=== PATIENT | female | born 1990 | race Caucasian/White ===

== ENCOUNTER 2018-04-25 11:04 | Emergency (ER) | payer OTHER ==
[2018-04-25] MEDS ORDERED: NORMAL SALINE 1000 ML 1,000 ML IV ONE (11:58)
[2018-04-25] MEDS ORDERED: METOCLOPRAMIDE HCL INJ/PF 10 MG/2 ML SDV IV ONE (11:58)
[2018-04-25] MEDS ORDERED: ACETAMINOPHEN 325 MG TABLET PO ONE (11:58)
[2018-04-25 13:08] LABS: APPEARANCE,URINE CLEAR; BILIRUBIN,URINE NEGATIVE (NEGATIVE); COLOR,URINE YELLOW; GLUCOSE, URINE NEGATIVE (NEGATIVE); KETONES,URINE TRACE mg/dL (NEGATIVE); LEUKOCYTE ESTERASE,URINE NEGATIVE (NEGATIVE); NITRITE,URINE NEGATIVE (NEGATIVE); PROTEIN,URINE NEGATIVE (NEGATIVE); URINE SPECIFIC GRAVITY 1.023; UROBILINOGEN,URINE NEGATIVE mg/dL (<2.0)
[2018-04-25 13:12] LABS: ALANINE AMINOTRANSFERASE 21 U/L (9-52); ALBUMIN 3.9 g/dL (3.5-5.0); ALKALINE PHOSPHATASE 54 U/L (38-126); ANION GAP 11 (5-19); ASPARTATE AMINO TRANSFERASE 26 U/L (14-36); BILIRUBIN,DIRECT 0.2 mg/dL (0.0-0.4); BILIRUBIN,TOTAL 0.7 mg/dL (0.2-1.3); BLOOD UREA NITROGEN 9 mg/dL (7-20); CALCIUM 9.5 mg/dL (8.4-10.2); CARBON DIOXIDE 24 mmol/L (22-30); CHLORIDE 104 mmol/L (98-107); GLUCOSE 80 mg/dL (75-110); POTASSIUM 4.1 mmol/L (3.6-5.0); SODIUM 139.2 mmol/L (137-145); TOTAL PROTEIN 7.3 g/dL (6.3-8.2)
--- NOTE | 2018-04-25 13:20 | ER Document Report ---
ED General - General Chief Complaint: Headache Stated Complaint: VOMITING/HEADACHE Time Seen by Provider: 04/25/18 11:51 TRAVEL OUTSIDE OF THE [place] IN LAST 30 DAYS: No - HPI Patient complains to provider of: Headache vomiting Notes: Patient coming infarct in 21 weeks complaining of significant headaches and vomiting. Patient states initially with this she was having vomiting however that resided patient states she currently is on metronidazole for a "yeast infection". Patient states she is almost completed only has 5 pills left however has a metal taste in her mouth and also significant headache patient states significant amount of vomiting over the last few hours as well. Patient otherwise states that she is feeling the baby kick. Patient is a complications during her first . Patient resting comfortably upon my evaluation states took Tylenol last night however stopped taking Tylenol earlier this morning. - Related Data Allergies/Adverse Reactions: No Known Allergies Allergy (Verified 04/25/18 11:05) Past Medical History - Social History Smoking Status: Unknown if Ever Smoked Chew tobacco use (# tins/day): No Frequency of alcohol use: None Drug Abuse: None Family History: Reviewed & Not Pertinent Patient has suicidal ideation: No Patient has homicidal ideation: No Renal/ Medical History: Denies: Hx Peritoneal Dialysis Review of Systems - Review of Systems Constitutional: Other - Headache vomiting EENT: No symptoms reported Cardiovascular: No symptoms reported Respiratory: No symptoms reported Gastrointestinal: No symptoms reported Genitourinary: No symptoms reported Female Genitourinary: No symptoms reported Musculoskeletal: No symptoms reported Skin: No symptoms reported Hematologic/Lymphatic: No symptoms reported Neurological/Psychological: No symptoms reported -: Yes All other systems reviewed and negative Physical Exam - Vital signs Vitals: Temp Pulse Resp BP Pulse Ox 99.6 F 79 16 117/59 L 99 04/25/18 11:22 04/25/18 11:22 04/25/18 11:22 04/25/18 11:22 04/25/18 11:22 Interpretation: Normal - General General appearance: Appears well, Alert - HEENT Head: Normocephalic, Atraumatic Eyes: Normal Pupils: PERRL - Respiratory Respiratory status: No respiratory distress Chest status: Nontender Breath sounds: Normal Chest palpation: Normal - Cardiovascular Rhythm: Regular Heart sounds: Normal auscultation Murmur: No - Abdominal Inspection: Normal Distension: No distension Bowel sounds: Normal Tenderness: Nontender Organomegaly: No organomegaly Notes: Bedside ultrasound shows heart tones at 156 positive motion - Back Back: Normal, Nontender - Extremities General upper extremity: Normal inspection, Nontender, Normal color, Normal ROM , Normal temperature General lower extremity: Normal inspection, Nontender, Normal color, Normal ROM , Normal temperature, Normal weight bearing. No: Rehan's sign - Neurological Neuro grossly intact: Yes Cognition: Normal Orientation: AAOx4 Xavier Coma Scale Eye Opening: Spontaneous [place] Coma Scale Verbal: Oriented [place] Coma Scale Motor: Obeys Commands Xavier Coma Scale Total: 15 Speech: Normal Motor strength normal: LUE, RUE, LLE, RLE Sensory: Normal - Psychological Associated symptoms: Normal affect, Normal mood - Skin Skin Temperature: Warm Skin Moisture: Dry Skin Color: Normal Course - Re-evaluation Re-evalutation: 04/25/18 16:04 The patient presents with headache without signs of [employer] bleed, stroke, infection , or other serious etiology. The patient is neurologically intact. Given the extremely low risk of these diagnoses further testing and evaluation for these possibilities does not appear to be indicated at this time. The patient has been instructed to return if the symptoms worsen or change in any way.. Nausea vomiting. The Reglan. Explained patient more likely some of her symptoms are due to side effects of the current antibiotic that she is on. Patient is to complete the antibiotic course however will be given Reglan further information about nausea medications patient can try. - Vital Signs Vital signs: Temp Pulse Resp BP Pulse Ox 99.6 F 76 17 114/63 100 04/25/18 11:22 04/25/18 13:27 04/25/18 13:27 04/25/18 13:27 04/25/18 13:27 - Laboratory Result Diagrams: 04/25/18 12:15 Laboratory results interpreted by me: 04/25/18 12:05 Urine Ketones TRACE H Discharge - Discharge Clinical Impression: Nausea/vomiting in Headache Qualifiers: Headache type: unspecified Headache chronicity pattern: unspecified pattern Intractability: not intractable Qualified Code(s): R51 - Headache Condition: Good Disposition: HOME, SELF-CARE Instructions: Headache ([facility]), ([facility]), Reglan ([facility], [facility]) Additional Instructions: Your evaluation today is consistent with either viral causes her nausea and vomiting however do suspect more likely this is due to the antibiotics which are currently on called Flagyl or metronidazole. Please continue your metronidazole as ordered. sHe may take the Reglan as prescribed for nausea and vomiting. Unfortunately the only thing that we can give you for your headaches at this time is Tylenol. Please continue with Tylenol 650 mg to 1000 mg every 4 -6 hours for pain control. Return to the ER for any other concerns. Please read the information below for nausea vomiting medications [id number] that are safe to use in For nausea and vomiting during I recomment: Start with 10-12.5 mg of pyridoxine (vitamin B6) three times a day for 2 days. If not fully effective, Increase to 12.5 mg of pyridoxine four times a day for 2 days. If not fully effective, Increase to 25 mg of pyridoxine three times a day for 2 days. If not fully effective, Continue 25 mg pyridoxine 3 times a day, and add 12.5 mg of doxylamine before bedtime each day for 2 days. If not fully effective, Continue 25 mg pyridoxine 3 times a day, and take 12.5 mg of doxylamine twice a day. If not fully effective, Continue 25 mg pyridoxine 3 times a day, and take 12.5 mg of doxylamine three times a day. If not fully effective, Continue 25 mg pyridoxine 3 times a day, and 12.5 mg of doxylamine 3 times a day , while adding Emetrol, one to two tablespoons (15-30 cc) taken once or twice a day as needed. (Emetrol is an [id number] mixture of sugar syrups and phosphoric acid [phosphorylated carbohydrate solution]) that acts by soothing the actual wall of the gastrointestinal tract). If not fully effective, Consult with your doctor. Prescriptions: Metoclopramide HCl [Reglan] 5 mg PO Q6 #30 tablet Forms: Return to Work Referrals: NURIA LAUGHLIN PA-C [Primary Care Provider] - Follow up as needed
[2018-04-25 13:28] VITALS: BP 114/63
== END 2018-04-25 13:28 | disposition home or self-care (01) ==
LOC: ER 11:04
DX: O21.9 Vomiting of pregnancy, unspecified (principal); R51 Headache; Z3A.21 21 weeks gestation of pregnancy
CPT/HCPCS: 99284; 96374; 36415; 80053; 81001; J2765